=== PATIENT | male | born 1995 | race Caucasian/White ===

== ENCOUNTER 2017-05-07 15:44 | Emergency (ER) | payer SELFPAY ==
[2017-05-07] MEDS ORDERED: LORazepam 1 MG Tab PO ONE (17:03)
--- NOTE | 2017-05-07 17:14 | EDM.PDOC ---
ED HPI GENERAL MEDICAL PROBLEM - General Chief Complaint: Drug or Alcohol Abuse Stated Complaint: DETOXING Time Seen by Provider: 05/07/17 16:02 Source of Information: Reports: Patient, Family History Limitations: Reports: No Limitations - History of Present Illness INITIAL COMMENTS - FREE TEXT/NARRATIVE: HISTORY AND PHYSICAL: History of present illness: []21-year-old male with a history of heroin addiction now brought in by his mom because he feels he is ready for outpatient treatment for drug rehabilitation. Patient last used 2 days ago. He states he is feeling progressively more comfortable and less restless but he still feels a little anxious. He has no specific complaints. Vision is very clear he is not depressed or suicidal. He did not intentionally overdose at any time nor does he injure himself in any way. Patient has no thoughts of hurting anyone else. Patient states multiple times he is gone 2 or 3 days without using heroin at which time he is typically feeling better but then he starts using again because "there is nothing else to do. "Patient states he does not use IV heroin and instead smokes it as his route of abuse. Review of systems: As per history of present illness and below otherwise all systems reviewed and negative. Past medical history: As per history of present illness and as reviewed below otherwise noncontributory. Surgical history: As per history of present illness and as reviewed below otherwise noncontributory. Social history: No reported history of drug or alcohol abuse. Family history: As per history of present illness and as reviewed below otherwise noncontributory. Physical exam: Mildly anxious male alert communicative and cooperative and appropriate. Nonfocal exam and nonfocal neurologically HEENT: Atraumatic, normocephalic, pupils reactive, negative for conjunctival pallor or scleral icterus, mucous membranes moist, throat clear, neck supple, nontender, trachea midline. Lungs: Clear to auscultation, breath sounds equal bilaterally, chest nontender. Heart: S1S2, regular, negative for clicks, rubs, or JVD. Abdomen: Soft, nondistended, nontender. Negative for masses or hepatosplenomegaly. Negative for costovertebral tenderness. Pelvis: Stable nontender. Genitourinary: Deferred. Rectal: Deferred. Extremities: Atraumatic, negative for cords or calf pain. Neurovascular unremarkable. Neuro: Awake, alert, oriented. Cranial nerves grossly unremarkable. Cerebellum unremarkable. Motor and sensory unremarkable throughout. Exam nonfocal. Diagnostics: [] Therapeutics: [Ativan given for anxiety] Impression: [Heroin abuse] Opioid withdrawal Plan: [Well-appearing patient signs and symptoms consistent with opioid withdrawal with stable vital signs in a patient who admits to long-term recurrent use of heroin. No evidence of psychiatric emergency exists and patient's vital signs are unremarkable. Totally alert appropriate cooperative and communicative. He does feel mildly anxious and by mouth dose of Ativan offered and accepted by patient. No further workup or treatment is indicated at this time. Patient and mother are pursuing outpatient treatment for drug rehabilitation patient describes that his withdrawal symptoms are clinically improving. He is tolerating by mouth fluids and has no clinical signs of dehydration. Patient and mother agree with outpatient follow-up and strict return precautions given Definitive disposition and diagnosis as appropriate pending reevaluation and review of above. - Related Data Allergies Allergy/AdvReac Type Severity Reaction Status Date / Time No Known Allergies Allergy Verified 05/07/17 15:52 Home Meds: Home Meds . [No Known Home Meds] 05/07/17 [History] Social & Family History - Tobacco Use Smoking Status *Q: Never Smoker Second Hand Smoke Exposure: No - Caffeine Use Caffeine Use: Reports: Energy Drinks - Alcohol Use Days Per Week of Alcohol Use: 0 - Recreational Drug Use Recreational Drug Use: Yes Drug Use in Last 12 Months: Yes Recreational Drug Type: Reports: Heroin, Oxycodone Recreational Drug Use Frequency: Daily ED ROS GENERAL - Review of Systems Review Of Systems: See Below (History of present illness) ED EXAM, GENERAL - Physical Exam Exam: See Below (History of present illness) Course - Vital Signs Last Recorded V/S: Last Vital Signs Temp 36.6 C 05/07/17 15:52 Pulse 81 05/07/17 15:52 Resp 18 05/07/17 15:52 BP 127/68 05/07/17 15:52 Pulse Ox 98 05/07/17 15:52 - Orders/Labs/Meds Orders: Active Orders 24 hr Category Date Time Status LORazepam [Ativan] Med 05/07/17 17:03 Once 1 mg PO ONETIME ONE Medication Orders Lorazepam (Ativan) 1 mg PO ONETIME ONE Stop: 05/07/17 17:04 Meds: Medications Generic Name Dose Route Start Last Admin Trade Name Freq PRN Reason Stop Dose Admin Lorazepam 1 mg 05/07/17 17:03 Ativan PO 05/07/17 17:04 ONETIME ONE Departure - Departure Time of Disposition: 17:14 Disposition: Home, Self-Care 01 Condition: Good, Fair Clinical Impression: Heroin abuse, Heroin addiction, Anxiety - Discharge Information Referrals: PCP,Unknown [Primary Care Provider] - Forms: ED Department Discharge Additional Instructions: Your symptoms of heroin withdrawal are improving by your description. Your vital signs are normal and stable. Rest and drink plenty of fluids. Follow up with your tomorrow. Follow-up as an outpatient for drug treatment/ rehabilitation as desired. - My Orders Last 24 Hours: My Active Orders 05/07/17 17:03 LORazepam [Ativan] 1 mg PO ONETIME ONE - Assessment/Plan Last 24 Hours: My Active Orders 05/07/17 17:03 LORazepam [Ativan] 1 mg PO ONETIME ONE
[2017-05-07 17:29] VITALS: BP 120/81
== END 2017-05-07 17:29 | disposition home or self-care (01) ==
LOC: MW.ED 15:44
DX: F11.23 Opioid dependence with withdrawal (principal); F41.9 Anxiety disorder, unspecified
CPT/HCPCS: 99281; A9270; 99283

== ENCOUNTER 2020-07-31 18:55 | Emergency (ER) | payer BC, OTHER ==
--- NOTE | 2020-07-31 19:23 | PCM.PREANE ---
Preanesthetic Assessment - Anesthesia/Transfusion/Family Hx Anesthesia History: No Prior Anesthesia Family History of Anesthesia Reaction: No - Physical Assessment NPO Status Date: 07/31/20 NPO Status Time: 16:00 ASA Class: 1E - Allergies Allergies/Adverse Reactions: Allergies Allergy/AdvReac Type Severity Reaction Status Date / Time No Known Allergies Allergy Verified 05/07/17 15:52 - Acknowledgements Anesthesia Type Planned: General Anesthesia, Spinal Pt an Appropriate Candidate for the Planned Anesthesia: Yes Alternatives and Risks of Anesthesia Discussed w Pt/Guardian: Yes Pt/Guardian Understands and Agrees with Anesthesia Plan: Yes PreAnesthesia Questionnaire - HOME MEDS Home Medications: Home Meds . [No Known Home Meds] 05/07/17 [History]
[2020-07-31] MEDS ORDERED: Diphtheria,Pertussis(Acell),Tetanus Vaccine 0.5 ML Syringe IM ONE (19:27)
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
[2020-07-31 19:49] LABS: BLOOD UREA NITROGEN,BUN 13 mg/dL (7.0-18.0); CARBON DIOXIDE,CO2 26.7 mmol/L (21.0-32.0); CHLORIDE,CL 103 mmol/L (98-107); GLUCOSE RANDOM 132 mg/dL (74-106); SODIUM,NA 139 mmol/L (136-148)
[2020-07-31] MEDS ORDERED: Lidocaine 1% with EPINEPHrine 1:100,000 20 ML MDV ONE (20:12)
[2020-07-31] MEDS ORDERED: Bacitracin Oint 1 GM U/D Packet TOP ONE (20:22)
[2020-07-31] MEDS ORDERED: Lidocaine 1% with EPINEPHrine 1:100,000 20 ML MDV INJECT ONE (20:29)
[2020-07-31 21:09] VITALS: BP 110/68
[2020-07-31 21:38] VITALS: PULSE 70
[2020-07-31] MEDS ORDERED: Iopamidol 755 Mg/ML 100 ML Bottle IVPUSH STA (21:40)
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
== END 2020-07-31 21:15 | disposition left against medical advice (07) ==
LOC: MW.ED 18:55
DX: S71.111A Laceration without foreign body, right thigh, initial encounter (principal); Z23 Encounter for immunization; W26.0XXA Contact with knife, initial encounter
CPT/HCPCS: 12002; 36415; 73562; 73706; 80053; 85025; 85610; 86850; 86900; 86901; 90471; 90715; 99285; G0390; Q9967

== ENCOUNTER 2024-05-23 16:03 | Emergency (ER) | payer BC, OTHER ==
[2024-05-23] MEDS ORDERED: Sodium Chloride 0.9% 20 ML SDV IV PRN (16:11)
[2024-05-23] MEDS ORDERED: Sodium Chloride 0.9% 2.5 ML Syringe FLUSH PRN (16:11)
[2024-05-23] MEDS ORDERED: Sodium Chloride 0.9% 10 ML Syringe FLUSH PRN (16:11)
[2024-05-23 16:21] LABS: BASOPHILS ABSOLUTE AUTO 0.04 K/uL (0.00-0.20); BASOPHILS PERCENT AUTO 0.5 % (0.0-1.0); EOSINOPHILS ABSOLUTE AUTO 0.02 K/uL (0.00-0.45); EOSINOPHILS PERCENT AUTO 0.3 % (0.0-6.0); HEMATOCRIT 38.8 % (42.0-52.0); HEMOGLOBIN 13.3 g/dL (14.0-18.0); IMMATURE GRAN ABSOLUTE AUTO 0.02 K/uL (0.00-0.05); IMMATURE GRAN PERCENT AUTO 0.3 % (0.0-0.4); LYMPHOCYTES ABSOLUTE AUTO 2.57 K/uL (1.00-4.80); LYMPHOCYTES PERCENT AUTO 33.1 % (24.0-44.0); MEAN CORPUSCULAR HEMOGLOBIN 29.1 pg (28.0-32.0); MEAN CORPUSCULAR HGB CONC 34.3 g/dL (32.0-36.0); MEAN CORPUSCULAR VOLUME 84.9 fL (83.0-99.0); MEAN PLATELET VOLUME 9.8 fL (9.4-12.4); MONOCYTES ABSOLUTE AUTO 0.38 K/uL (0.00-0.80); MONOCYTES PERCENT AUTO 4.9 % (0.0-8.0); NEUTROPHILS ABSOLUTE AUTO 4.74 K/uL (1.80-7.70); NEUTROPHILS PERCENT AUTO 60.9 % (41.0-71.0); PLATELET COUNT,PLT 266 K/uL (150-400); RED BLOOD CELL COUNT 4.57 M/uL (4.52-5.90); WHITE BLOOD CELL COUNT,WBC 7.77 K/uL (3.9-11.3)
[2024-05-23] MEDS: HYDROmorphone 0.5 MG/0.5 ML Syringe IVPUSH ONE ×2 (16:21→18:04)
[2024-05-23] MEDS: Ondansetron 4 MG/2 ML SDV IVPUSH ONE (16:21)
[2024-05-23] MEDS: ceFAZolin 2 GM in Sodium Chloride 0.9% 50 ML IV ONE (16:24)
[2024-05-23 16:35] LABS: INR 1.08 (0.86-1.11)
[2024-05-23 16:46] LABS: ALBUMIN 4.3 g/dL (3.4-5.0); CALCIUM 8.5 mg/dL (8.5-10.1); CARBON DIOXIDE,CO2 26.7 mmol/L (21.0-32.0); CREATININE 1.3 mg/dL (0.8-1.3); EST CRCL DRUG DOSING (CG) 87.62 mL/min; POTASSIUM,K 2.8 mmol/L (3.5-5.1); PROTEIN TOTAL,TP 7.3 g/dL (6.4-8.2)
[2024-05-23 16:47] LABS: A/G RATIO 1.4 (0.9-1.6); BILIRUBIN TOTAL 0.7 mg/dL (0.2-1.0)
[2024-05-23] MEDS: fentaNYL 50 MCG/ML SDV IVPUSH ONE (17:01)
[2024-05-23] MEDS: Sodium Chloride 0.9% 1,000 ML IV ONE (18:05)
[2024-05-23 18:10] VITALS: BP 139/84; PULSE 74
[2024-05-23] MEDS: Potassium Chloride 20 MEQ Tab.ER PO ONE (19:03)
== END 2024-05-23 19:07 ==
LOC: MW.ED 16:03
DX: S98.912A Complete traumatic amputation of left foot, level unspecified, initial encounter (principal); S92.352B Displaced fracture of fifth metatarsal bone, left foot, initial encounter for open fracture; S93.125A Dislocation of metatarsophalangeal joint of left lesser toe(s), initial encounter; X58.XXXA Exposure to other specified factors, initial encounter
CPT/HCPCS: 36415; 73620; 80053; 85025; 85610; 86850; 86900; 86901; 96361; 96365; 96375; 99285; A9270; J0690; J1170; J2405; J3010; J3490; J7030; 99291